=== PATIENT | male | born 1970 | race Caucasian/White ===

== ENCOUNTER 2021-01-15 23:55 | Emergency (ER) | payer BC ==
[~2021-01-15] VITALS: Ht 165.1 cm; Wt 86.2 kg
[2021-01-16 00:51] VITALS: BP 162/87
--- NOTE | 2021-01-16 01:20 | NUR ---
Patient discharged to home in stable condition. Written and verbal after care instructions given. Patient verbalizes understanding of instruction.
== END 2021-01-16 01:21 | disposition home or self-care (01) ==
LOC: ER 23:55
DX: U07.1 COVID-19 (principal); R06.00 Dyspnea, unspecified

== ENCOUNTER 2022-07-02 19:34 | Emergency (ER) | payer BC, OTHER ==
[~2022-07-02] VITALS: Ht 167.6 cm; Wt 92.1 kg
--- NOTE | 2022-07-02 19:40 | NUR ---
BIB SPOU SE FOR C/O OF SLURRED SPEECH, DIZZINES, AND TOTAL BODY NUMBNESS SINCE 1609. PT AWAKE AND ALERT X4 IN NO RESPIRITORY DISTRESS, AMBULATORY WITH ASSISTANCE. ON ASSESSMENT PT HAS 5/5 STRENGTH TO ALL EXTREMITIES, AXOX4, NO ARM/LEG DRIFT. PT ASSISTED TO BED 9 CHANGED INTO GOWN AND PLACED ON BOTTLE CARRIER AND PULSE OX.
--- NOTE | 2022-07-02 19:49 | NUR ---
BLOOD COLLECTED AND SENT TO LAB
[2022-07-02] MEDS ORDERED: MECLIZINE HCL 12.5 MG TABLET PO ONE (20:00)
[2022-07-02] MEDS ORDERED: IV NS 0.9% 1,000 ML BAG IV ONE (20:00)
[2022-07-02] MEDS ORDERED: MECLIZINE HCL 25 MG TABLET ONE (20:01)
[2022-07-02 20:27] LABS: BASOPHILS # (AUTO) 0.1 K/uL (0.0-0.2); BASOPHILS % (AUTO) 0.6 % (0.0-2.0); EOSINOPHILS % (AUTO) 1.2 % (0.0-6.0); HEMATOCRIT 45 % (39-51); HEMOGLOBIN 14.4 g/dL (13.5-17.5); LYMPHOCYTES # (AUTO) 3.2 K/uL (0.8-4.8); LYMPHOCYTES % (AUTO) 31.5 % (20.0-44.0); MEAN CORPUSCULAR HGB CONC 32 g/dl (31.0-36.0); MEAN CORPUSCULAR VOLUME 82 fL (80-96); MONOCYTES # (AUTO) 0.5 K/uL (0.1-1.30); MONOCYTES % (AUTO) 4.5 % (2.0-12.0); NEUTROPHILS # (AUTO) 6.2 K/uL (1.8-8.9); NEUTROPHILS % (AUTO) 62.2 % (43.0-81.0); PLATELET COUNT (AUTO) 344 K/uL (150-450); RED BLOOD CELL COUNT(AUTO) 5.41 MIL/uL (4.5-6.0); WHITE BLOOD COUNT (AUTO) 10.1 K/uL (4.3-11.0)
[2022-07-02 20:31] LABS: ALBUMIN 3.8 g/dL (3.4-5.0); BILIRUBIN,DIRECT 0.1 mg/dL (0.0-0.2); BILIRUBIN,TOTAL 0.3 mg/dL (0.2-1.0); CALCIUM, SERUM 9.3 mg/dL (8.5-10.1); CREATININE 1.1 mg/dL (0.6-1.3); POTASSIUM 3.8 mmol/L (3.5-5.1); TOTAL PROTEIN, SERUM 7.7 g/dL (6.4-8.2)
[2022-07-02] MEDS ORDERED: DIAZEPAM 5 MG TABLET ONE (21:16)
[2022-07-02] MEDS ORDERED: IV NS 0.9% 250 ML IV ONE (21:22)
[2022-07-02] MEDS ORDERED: IOHEXOL-300 100 ML VIAL IV ONE (21:22)
[2022-07-02] MEDS ORDERED: DIAZEPAM 5 MG TABLET PO ONE (21:30)
--- NOTE | 2022-07-02 21:51 | NUR ---
COVID SWAB DONE AND SENT TO LAB
--- NOTE | 2022-07-02 21:51 | NUR ---
PATIENT AMBULATED TO RESTROOM WITH .
[2022-07-02] MEDS ORDERED: ASPIRIN 81 MG TAB.CHEW PO ONE (23:00)
[2022-07-02] MEDS ORDERED: ASPIRIN 81 MG TAB.CHEW ONE (23:09)
--- NOTE | 2022-07-03 00:32 | NUR ---
DR TRUONG ON THE PHONE WITH [employer] FOR PEER TO PEER
--- NOTE | 2022-07-03 01:35 | NUR ---
Neri stein in [facility] - 07/03/22 at 0136 by RENEE COVID SWAB DONE AND SENT TO LAB
--- NOTE | 2022-07-03 03:13 | NUR ---
PT WILL BE TRANSPORTED TO [facility] AT 0600 VIA [facility].
--- NOTE | 2022-07-03 03:19 | NUR ---
ACCEPTANCE INFO: PT ACCEPTED AT [facility] BY [facility] TO RM: [id number]. # FOR REPORT: [phone] [facility] ETA: 0600
--- NOTE | 2022-07-03 03:28 | NUR ---
REPORT GIVEN TO CHANI POLLARD
--- NOTE | 2022-07-03 06:03 | NUR ---
TRANSPORTATION AT BEDSIDE TO TRANSPORT PATIENT VIA AMBULANCE.
[2022-07-03 06:04] VITALS: BP 155/90
== END 2022-07-03 06:44 | disposition short-term general hospital (02) ==
LOC: ER 19:43
DX: R42 Dizziness and giddiness (principal); R00.0 Tachycardia, unspecified; J32.0 Chronic maxillary sinusitis; Z20.822 Contact with and (suspected) exposure to COVID-19
CPT/HCPCS: 99285; 70450; 96360; 87426; 93005; 70498; 85025; 80048; 80076; 36415; J8597; J7030; J7050; Q9967; C9803